=== PATIENT | male | born 1950 | race African-American/Black ===

== ENCOUNTER 2017-03-13 06:27 | Day surgery (SDC) | payer MEDICAID, MEDICARE ==
[~2017-03-13] VITALS: Ht 185.4 cm; Wt 93.9 kg
[2017-03-13] MEDS ORDERED: TROPICAMIDE 1% OPHTH DROPS 15ML LEFTEYE SCH (07:55)
[2017-03-13] MEDS ORDERED: CYCLOPENTOLATE HCL 1% OPHTH DROPS 2ML LEFTEYE SCH (07:55)
[2017-03-13] MEDS ORDERED: PHENYLEPHRINE HCL 10% OPHTH DROPS 5ML LEFTEYE SCH (07:55)
[2017-03-13] MEDS ORDERED: FENTANYL CITRATE/PF 50MCG/ML 2ML VIAL IV PRN (08:00)
[2017-03-13] MEDS ORDERED: ONDANSETRON HCL 4MG/2ML VIAL IV PRN (08:00)
[2017-03-13] MEDS ORDERED: SODIUM CHLORIDE 0.9% 1,000 ML IV SCH (08:15)
[2017-03-13] MEDS ORDERED: BALANCED SALT IRRIG SOLN COMB1 500ML OP SCH (08:30)
[2017-03-13] MEDS ORDERED: MIDAZOLAM HCL 2 MG/2 ML VIAL ONE ×2 (09:32→09:43)
[2017-03-13] MEDS ORDERED: PROPOFOL 200MG/20ML VIAL IV ONE (09:32)
[2017-03-13] MEDS ORDERED: HYALURONATE SODIUM 14 MG/ML 0.85ML SYRINGE IO ONE (09:35)
[2017-03-13] MEDS ORDERED: METF500T4 PO (11:12)
[2017-03-13] MEDS ORDERED: BENA1TAB18 PO (11:12)
[2017-03-13] MEDS ORDERED: LATA2.5D6 LEFTEYE (11:13)
[2017-03-13] MEDS ORDERED: TIMO15DR12 EACHEYE (11:13)
[2017-03-13] MEDS ORDERED: ACET250T3 PO (11:13)
[2017-03-13] MEDS ORDERED: AMOX500T2 PO (11:13)
[2017-03-13] MEDS ORDERED: ACET-2708 PO (11:13)
[2017-03-13] MEDS ORDERED: BRIM5DRO BOTHEYE (11:13)
[2017-03-13] MEDS ORDERED: TETRACAINE 0.5% OPHTH DROPS 4ML ONE (14:27)
[2017-03-13] MEDS ORDERED: PREDNISOLONE ACETATE 1% OPHTH DROPS 1ML ONE (14:27)
[2017-03-13] MEDS ORDERED: NEO/POLYMYX B SULF/DEXAMETH OPHTH OINT 3.5GM ONE (14:27)
[2017-03-13] MEDS ORDERED: BALANCED SALT IRRIG SOLN 15ML ONE (14:27)
[2017-03-13] MEDS ORDERED: BUPIVACAINE HCL/PF 0.75% (7.5MG/ML) 10ML ONE (14:27)
[2017-03-13] MEDS ORDERED: CIPROFLOXACIN 0.3% OPHTH SOLN 2.5ML ONE (14:27)
[2017-03-13] MEDS ORDERED: LIDOCAINE HCL 2%/EPINEPHRINE 1:100,000 20 ML VIAL INFIL ONE (14:27)
== END 2017-03-13 11:00 | disposition home or self-care (01) ==
LOC: OR 06:27
PROVIDERS: ATTEND Ophthalmology
DX: H25.9 Unspecified age-related cataract (principal); I10 Essential (primary) hypertension; E11.9 Type 2 diabetes mellitus without complications; H40.89 Other specified glaucoma
CPT/HCPCS: 66984; 82962; J2250; J3490; J7030; J2704

== ENCOUNTER 2017-05-01 18:45 | Inpatient (IN) | payer MEDICARE, MEDICAID ==
[~2017-05-01] VITALS: Ht 185.4 cm; Wt 93.0 kg
[~2017-05-01 18:45] MED LIST: ACET-2708 PO; ACET250T3 PO; AMOX500T2 PO; BENA1TAB18 PO; BRIM5DRO BOTHEYE; LATA2.5D6 LEFTEYE; METF500T4 PO; TIMO15DR12 EACHEYE
[2017-05-01] MEDS ORDERED: ONDANSETRON HCL 4MG/2ML VIAL IV STA (19:00)
[2017-05-01 19:20] LABS: BASOPHILS % 0.2 % (0.0-2.0); HEMATOCRIT. 40.9 % (42.0-52.0); HEMOGLOBIN. 14.1 g/dL (14.0-18.0); LYMPHOCYTES % 8.2 % (20.0-50.0); MEAN CORPUSCULAR HEMOGLOBIN 30.9 pg (28.0-32.0); MEAN CORPUSCULAR VOLUME 89.8 fL (80.0-94.0); MEAN PLATELET VOLUME 9.4 fl (7.4-10.4); MONOCYTES % 2.9 % (2.0-8.0); NEUTROPHILS % 88.7 % (40.0-76.0); PLATELET 212 x1000/uL (130-400); RED BLOOD CELL COUNT 4.56 mill/uL (4.7-6.1); RED CELL DISTRIBUTION WIDTH 13.3 % (11.6-14.6)
[2017-05-01 19:26] LABS: INR 1.1; PROTHROMBIN TIME 11.1 sec
[2017-05-01 19:35] LABS: CARBON DIOXIDE 21 mEq/L (21-32); CHLORIDE 109 mEq/L (98-107); TROPONIN I < 0.02 ng/mL (0.00-0.04)
[2017-05-01] MEDS ORDERED: SODIUM CHLORIDE 0.9% 1,000 ML IV NR (19:55)
[2017-05-01] MEDS ORDERED: MORPHINE SULFATE 4 MG/ML CPJ (NOT FOR IM USE) IV NR (20:00)
[2017-05-01] MEDS ORDERED: FAMOTIDINE 20MG/2ML VIAL IV NR (20:00)
[2017-05-01] MEDS ORDERED: POTASSIUM CHLORIDE 20MEQ TABLET SR PO NR (23:00)
[2017-05-01] MEDS ORDERED: DOCUSATE SODIUM 100MG CAPSULE PO PRN (23:00)
[2017-05-01] MEDS ORDERED: IPRATROPIUM/ALBUTEROL 0.5-3(2.5)MG/3ML NEB INH PRN (23:00)
[2017-05-01] MEDS ORDERED: ACETAMINOPHEN 325MG TABLET PO PRN (23:00)
[2017-05-01] MEDS ORDERED: ONDANSETRON HCL 4MG/2ML VIAL IV PRN (23:00)
[2017-05-02] MEDS: SODIUM CHLORIDE 0.9% 1,000 ML IV SCH ×4 (00:13→03:45)
[2017-05-02 03:19] VITALS: BP 162/85
[2017-05-02 04:00] VITALS: BP 166/88
[2017-05-02 06:25] LABS: BASOPHILS % 0.1 % (0.0-2.0); EOSINOPHILS % 0.1 % (0.0-5.0); HEMATOCRIT. 41.6 % (42.0-52.0); LYMPHOCYTES % 18.4 % (20.0-50.0); MEAN CORPUSCULAR HEMOGLOBIN 30.6 pg (28.0-32.0); MEAN CORPUSCULAR VOLUME 91.2 fL (80.0-94.0); MEAN PLATELET VOLUME 9.8 fl (7.4-10.4); MONOCYTES % 9.6 % (2.0-8.0); NEUTROPHILS % 71.8 % (40.0-76.0); PLATELET 190 x1000/uL (130-400); RED BLOOD CELL COUNT 4.56 mill/uL (4.7-6.1); RED CELL DISTRIBUTION WIDTH 12.8 % (11.6-14.6)
[2017-05-02 07:26] LABS: CHLORIDE 111 mEq/L (98-107)
[2017-05-02 07:33] LABS: CARBON DIOXIDE 20 mEq/L (21-32)
[2017-05-02 08:00] VITALS: BP 178/104
[2017-05-02] MEDS ORDERED: DEXTROSE 50% WATER 50ML SYRINGE IV PRN (08:15)
[2017-05-02] MEDS ORDERED: CLONIDINE 0.1MG TABLET PO NR (08:27)
[2017-05-02] MEDS: PANTOPRAZOLE SODIUM 40 MG/VIAL IV SCH (08:55)
[2017-05-02] MEDS ORDERED: POTASSIUM CHLORIDE 20MEQ TABLET SR PO SCH (09:15)
[2017-05-02 12:00] VITALS: BP 142/84
[2017-05-02] MEDS: INSULIN LISPRO 100 UNITS/ML SUBCUT SCH ×3 (12:15→20:28)
[2017-05-02] MEDS: BLOOD SUGAR DIAGNOSTIC STRIP TEST SCH ×3 (12:38→20:24)
[2017-05-02] MEDS: PREDNISOLONE ACETATE 1% OPHTH DROPS 1ML LEFTEYE SCH ×2 (12:48→19:01)
[2017-05-02] MEDS: BENAZEPRIL 20MG TABLET PO SCH (13:00)
[2017-05-02] MEDS: CIPROFLOXACIN 0.3% OPHTH SOLN 2.5ML LEFTEYE SCH ×3 (13:35→20:24)
[2017-05-02 16:00] VITALS: BP 159/91
[2017-05-02 20:00] VITALS: BP 128/79
[2017-05-03] VITALS (7 sets, daily range): BP systolic 128–178; BP diastolic 73–96
[2017-05-03] MEDS: PREDNISOLONE ACETATE 1% OPHTH DROPS 1ML LEFTEYE SCH ×4 (00:28→17:17)
[2017-05-03] MEDS: BLOOD SUGAR DIAGNOSTIC STRIP TEST SCH ×4 (06:16→21:00)
[2017-05-03] MEDS: INSULIN LISPRO 100 UNITS/ML SUBCUT SCH ×4 (06:16→21:00)
[2017-05-03 07:15] LABS: BASOPHILS % 0.6 % (0.0-2.0); EOSINOPHILS % 1.2 % (0.0-5.0); HEMATOCRIT. 39.1 % (42.0-52.0); HEMOGLOBIN. 13.2 g/dL (14.0-18.0); LYMPHOCYTES % 36.4 % (20.0-50.0); MEAN CORPUSCULAR HEMOGLOBIN 30.6 pg (28.0-32.0); MEAN CORPUSCULAR VOLUME 90.9 fL (80.0-94.0); MEAN PLATELET VOLUME 9.8 fl (7.4-10.4); MONOCYTES % 9.6 % (2.0-8.0); NEUTROPHILS % 52.2 % (40.0-76.0); PLATELET 187 x1000/uL (130-400); RED BLOOD CELL COUNT 4.31 mill/uL (4.7-6.1); RED CELL DISTRIBUTION WIDTH 13.3 % (11.6-14.6)
[2017-05-03 07:33] LABS: CARBON DIOXIDE 26 mEq/L (21-32); CHLORIDE 112 mEq/L (98-107)
[2017-05-03] MEDS: PANTOPRAZOLE SODIUM 40 MG/VIAL IV SCH (08:56)
[2017-05-03] MEDS: CIPROFLOXACIN 0.3% OPHTH SOLN 2.5ML LEFTEYE SCH ×4 (08:57→22:24)
[2017-05-03] MEDS: BENAZEPRIL 20MG TABLET PO SCH (12:30)
[2017-05-03] MEDS ORDERED: HYDROCHLOROTHIAZIDE 12.5MG CAPSULE PO NR (20:00)
[2017-05-04] VITALS (9 sets, daily range): BP systolic 149–188; BP diastolic 89–107
[2017-05-04] MEDS: PREDNISOLONE ACETATE 1% OPHTH DROPS 1ML LEFTEYE SCH ×4 (00:26→18:18)
[2017-05-04] MEDS: BLOOD SUGAR DIAGNOSTIC STRIP TEST SCH ×4 (06:06→20:54)
[2017-05-04] MEDS: INSULIN LISPRO 100 UNITS/ML SUBCUT SCH ×4 (06:07→21:26)
[2017-05-04 07:00] LABS: CARBON DIOXIDE 27 mEq/L (21-32); CHLORIDE 107 mEq/L (98-107)
[2017-05-04 07:07] LABS: BASOPHILS % 0.7 % (0.0-2.0); EOSINOPHILS % 1.3 % (0.0-5.0); HEMATOCRIT. 40.4 % (42.0-52.0); LYMPHOCYTES % 37.7 % (20.0-50.0); MEAN CORPUSCULAR HEMOGLOBIN 30.6 pg (28.0-32.0); MEAN CORPUSCULAR VOLUME 88.6 fL (80.0-94.0); MEAN PLATELET VOLUME 9.7 fl (7.4-10.4); MONOCYTES % 10.5 % (2.0-8.0); NEUTROPHILS % 49.8 % (40.0-76.0); PLATELET 200 x1000/uL (130-400); RED BLOOD CELL COUNT 4.56 mill/uL (4.7-6.1)
[2017-05-04] MEDS: HYDROCHLOROTHIAZIDE 25MG TABLET PO SCH (07:13)
[2017-05-04] MEDS: PANTOPRAZOLE SODIUM 40 MG/VIAL IV SCH (08:45)
[2017-05-04] MEDS: CIPROFLOXACIN 0.3% OPHTH SOLN 2.5ML LEFTEYE SCH ×4 (08:45→20:58)
[2017-05-04] MEDS ORDERED: BENAZEPRIL 20MG TABLET PO SCH ×2 (09:00→21:00)
[2017-05-04] MEDS ORDERED: POTASSIUM CHLORIDE 20MEQ TABLET SR PO NR (11:45)
[2017-05-04] MEDS: AMLODIPINE 5MG TABLET PO SCH (13:38)
[2017-05-05] VITALS (8 sets, daily range): BP systolic 113–168; BP diastolic 81–107
[2017-05-05] MEDS: PREDNISOLONE ACETATE 1% OPHTH DROPS 1ML LEFTEYE SCH ×4 (00:16→17:58)
[2017-05-05 05:43] LABS: BASOPHILS % 0.6 % (0.0-2.0); EOSINOPHILS % 1.6 % (0.0-5.0); HEMATOCRIT. 44.5 % (42.0-52.0); HEMOGLOBIN. 15.2 g/dL (14.0-18.0); MEAN CORPUSCULAR HEMOGLOBIN 30.6 pg (28.0-32.0); MEAN CORPUSCULAR VOLUME 89.8 fL (80.0-94.0); MEAN PLATELET VOLUME 9.2 fl (7.4-10.4); MONOCYTES % 10.2 % (2.0-8.0); NEUTROPHILS % 52.6 % (40.0-76.0); PLATELET 214 x1000/uL (130-400); RED BLOOD CELL COUNT 4.96 mill/uL (4.7-6.1); RED CELL DISTRIBUTION WIDTH 12.9 % (11.6-14.6)
[2017-05-05] MEDS: BLOOD SUGAR DIAGNOSTIC STRIP TEST SCH ×4 (06:11→21:35)
[2017-05-05 06:16] LABS: CHLORIDE 100 mEq/L (98-107)
[2017-05-05 06:22] LABS: CARBON DIOXIDE 30 mEq/L (21-32)
[2017-05-05] MEDS: INSULIN LISPRO 100 UNITS/ML SUBCUT SCH ×3 (06:55→16:49)
[2017-05-05] MEDS: BENAZEPRIL 20MG TABLET PO SCH ×2 (08:53→21:00)
[2017-05-05] MEDS: HYDROCHLOROTHIAZIDE 25MG TABLET PO SCH (08:53)
[2017-05-05] MEDS: CIPROFLOXACIN 0.3% OPHTH SOLN 2.5ML LEFTEYE SCH ×4 (08:54→21:11)
[2017-05-05] MEDS: PANTOPRAZOLE SODIUM 40 MG/VIAL IV SCH (08:54)
[2017-05-05] MEDS: AMLODIPINE 5MG TABLET PO SCH ×2 (09:00→11:53)
[2017-05-05] MEDS: HYDRALAZINE HCL 25MG TABLET PO SCH ×3 (10:09→22:00)
[2017-05-05] MEDS ORDERED: METFORMIN HCL 500MG TABLET PO SCH (18:00)
[2017-05-06] VITALS: BP 134/92
[2017-05-06] MEDS: PREDNISOLONE ACETATE 1% OPHTH DROPS 1ML LEFTEYE SCH ×2 (00:08→06:01)
[2017-05-06 04:00] VITALS: BP 133/94
[2017-05-06 05:42] LABS: BASOPHILS % 0.7 % (0.0-2.0); EOSINOPHILS % 1.6 % (0.0-5.0); HEMATOCRIT. 44.6 % (42.0-52.0); HEMOGLOBIN. 14.9 g/dL (14.0-18.0); LYMPHOCYTES % 33.4 % (20.0-50.0); MEAN CORPUSCULAR HEMOGLOBIN 30.5 pg (28.0-32.0); MEAN CORPUSCULAR VOLUME 91.3 fL (80.0-94.0); MEAN PLATELET VOLUME 9.6 fl (7.4-10.4); MONOCYTES % 10.9 % (2.0-8.0); NEUTROPHILS % 53.4 % (40.0-76.0); PLATELET 220 x1000/uL (130-400); RED BLOOD CELL COUNT 4.88 mill/uL (4.7-6.1)
[2017-05-06] MEDS: HYDRALAZINE HCL 25MG TABLET PO SCH (06:00)
[2017-05-06 06:05] LABS: CARBON DIOXIDE 29 mEq/L (21-32); CHLORIDE 100 mEq/L (98-107)
[2017-05-06] MEDS: BLOOD SUGAR DIAGNOSTIC STRIP TEST SCH (06:23)
[2017-05-06] MEDS ORDERED: METFORMIN HCL 500MG TABLET PO SCH ×2 (07:15→09:00)
[2017-05-06 08:00] VITALS: BP 138/87
[2017-05-06] MEDS: BENAZEPRIL 20MG TABLET PO SCH (08:02)
[2017-05-06] MEDS: CIPROFLOXACIN 0.3% OPHTH SOLN 2.5ML LEFTEYE SCH (08:02)
[2017-05-06] MEDS: HYDROCHLOROTHIAZIDE 25MG TABLET PO SCH (08:02)
[2017-05-06] MEDS ORDERED: FAMOTIDINE 20MG TABLET PO SCH (09:00)
[2017-05-06] MEDS: AMLODIPINE 5MG TABLET PO SCH (11:35)
[2017-05-06 12:27] VITALS: BP 133/83
== END 2017-05-06 13:00 | disposition home or self-care (01) | DRG 918 ==
LOC: ER 18:55 → 5WST 20:28 → EDBEDREQ 20:32 → EDBEDREQTM 20:32 → ENRESERV 21:47 → CANRESERV 21:47 → SUPCPDRO 22:49 → EDBEDREQTM 23:05 → EDBEDREQSVC 23:05 → ENRESERV 05-02 01:32
PROVIDERS: ADMIT Family Medicine Adult Medicine; ATTEND Family Medicine Adult Medicine
DX: T88.59XA Other complications of anesthesia, initial encounter (principal); I47.1 Supraventricular tachycardia; E11.319 Type 2 diabetes mellitus with unspecified diabetic retinopathy without macular edema; H40.9 Unspecified glaucoma; I10 Essential (primary) hypertension; R00.1 Bradycardia, unspecified; Z96.89 Presence of other specified functional implants; H54.11 Blindness, right eye, low vision left eye; I45.10 Unspecified right bundle-branch block; Y83.8 Other surgical procedures as the cause of abnormal reaction of the patient, or of later complication, without mention of misadventure at the time of the procedure; Y77.8 Miscellaneous ophthalmic devices associated with adverse incidents, not elsewhere classified; K59.00 Constipation, unspecified; H40.059 Ocular hypertension, unspecified eye; Z71.89 Other specified counseling; Z87.891 Personal history of nicotine dependence; Z79.899 Other long term (current) drug therapy; Z82.49 Family history of ischemic heart disease and other diseases of the circulatory system; Y92.89 Other specified places as the place of occurrence of the external cause
CPT/HCPCS: 36415; 71010; 80048; 80053; 80076; 82962; 83735; 83880; 84443; 84484; 85025; 85610; 93005; 93306; 93970; 96361; 96374; 96375; 99285; C9113; J1815; J2270; J2405; J3490; J7030

== ENCOUNTER 2017-05-16 00:07 | Emergency (ER) | payer MEDICARE, MEDICAID ==
[~2017-05-16] VITALS: Ht 185.4 cm; Wt 93.0 kg
[~2017-05-16 00:07] MED LIST changes: -TIMO15DR12 EACHEYE
[2017-05-16 04:38] VITALS: BP 130/83
== END 2017-05-16 05:20 | disposition home or self-care (01) ==
LOC: ER 00:15
DX: H57.12 Ocular pain, left eye (principal)
CPT/HCPCS: 99283

== ENCOUNTER → 2019-02-04 | Day surgery (SDC) | payer MEDICARE, MEDICAID ==
[~2019-02-04] VITALS: Ht 185.4 cm; Wt 95.3 kg
[~2019-02-04] MED LIST changes: +ACETAMINOPHEN 500MG TABLET PO NR; +ACETYLCHOLINE CHLORIDE INTRAOCULAR SOLUTION 1:100 ELECTROLYTE DILUENT IO ONE; +BALANCED SALT IRRIG SOLN 15ML ONE; +BRIN8DRO LEFTEYE; +BUPIVACAINE HCL/PF 0.75% (7.5MG/ML) 10ML ONE; +CIPROFLOXACIN 0.3% OPHTH SOLN 2.5ML ONE; +FENTANYL CITRATE/PF 50MCG/ML 2ML VIAL ONE; +GLYCOPYRROLATE 0.2 MG/ML 2ML VIAL ONE; +LACTATED RINGERS 1,000 ML IV SCH; +LATA2.5D4 LEFTEYE; -LATA2.5D6 LEFTEYE; +LIDOCAINE HCL 2%/EPINEPHRINE 1:100,000 20 ML VIAL INFIL ONE; +LIDOCAINE HCL/PF 1% 10 MG/ML 5ML VIAL ONE; +METF-414 PO; -METF500T4 PO; +METH50TA5 PO; +METOCLOPRAMIDE HCL 10MG/2ML VIAL ONE; +MIDAZOLAM HCL 2 MG/2 ML VIAL ONE; +MITOMYCIN 0.2 MG KIT OP NR; +NEO/POLYMYX B SULF/DEXAMETH OPHTH OINT 3.5GM ONE; +NEOSTIGMINE METHYLSULFATE 1MG/ML 10 ML VIAL ONE; +ONDANSETRON HCL 4MG/2ML INJ ONE; +PREDNISOLONE ACETATE 1% OPHTH DROPS 1ML ONE; +PROPOFOL 200MG/20ML VIAL IV ONE; +ROCURONIUM BROMIDE 10MG/ML VIAL 5ML IV ONE; +SUCCINYLCHOLINE CHLORIDE 200MG/10ML IV ONE; +TRAV2.5D LEFTEYE
== END | disposition home or self-care (01) ==
LOC: OR 08:49
PROVIDERS: ATTEND Ophthalmology
DX: E11.39 Type 2 diabetes mellitus with other diabetic ophthalmic complication (principal); E11.319 Type 2 diabetes mellitus with unspecified diabetic retinopathy without macular edema; H40.89 Other specified glaucoma; I10 Essential (primary) hypertension; K21.9 Gastro-esophageal reflux disease without esophagitis; Z79.899 Other long term (current) drug therapy; Z79.84 Long term (current) use of oral hypoglycemic drugs; Z83.3 Family history of diabetes mellitus
CPT/HCPCS: 66170; 82962; J0330; J2250; J2405; J2704; J2710; J2765; J3010; J3490; J9280

== ENCOUNTER 2020-01-03 23:13 | Emergency (ER) | payer MEDICARE, MEDICAID ==
[~2020-01-03] VITALS: Ht 185.4 cm; Wt 93.0 kg
[~2020-01-03 23:13] MED LIST changes: -ACET250T3 PO; -ACETAMINOPHEN 500MG TABLET PO NR; -ACETYLCHOLINE CHLORIDE INTRAOCULAR SOLUTION 1:100 ELECTROLYTE DILUENT IO ONE; -AMOX500T2 PO; -BALANCED SALT IRRIG SOLN 15ML ONE; -BRIM5DRO BOTHEYE; -BUPIVACAINE HCL/PF 0.75% (7.5MG/ML) 10ML ONE; -CIPROFLOXACIN 0.3% OPHTH SOLN 2.5ML ONE; -FENTANYL CITRATE/PF 50MCG/ML 2ML VIAL ONE; -GLYCOPYRROLATE 0.2 MG/ML 2ML VIAL ONE; -LACTATED RINGERS 1,000 ML IV SCH; -LATA2.5D4 LEFTEYE; -LIDOCAINE HCL 2%/EPINEPHRINE 1:100,000 20 ML VIAL INFIL ONE; -LIDOCAINE HCL/PF 1% 10 MG/ML 5ML VIAL ONE; -METOCLOPRAMIDE HCL 10MG/2ML VIAL ONE; -MIDAZOLAM HCL 2 MG/2 ML VIAL ONE; -MITOMYCIN 0.2 MG KIT OP NR; -NEO/POLYMYX B SULF/DEXAMETH OPHTH OINT 3.5GM ONE; -NEOSTIGMINE METHYLSULFATE 1MG/ML 10 ML VIAL ONE; -ONDANSETRON HCL 4MG/2ML INJ ONE; -PREDNISOLONE ACETATE 1% OPHTH DROPS 1ML ONE; -PROPOFOL 200MG/20ML VIAL IV ONE; -ROCURONIUM BROMIDE 10MG/ML VIAL 5ML IV ONE; -SUCCINYLCHOLINE CHLORIDE 200MG/10ML IV ONE
[2020-01-04] MEDS ORDERED: HYDROCODONE/ACETAMINOPHEN 5/325MG TABLET PO ONE (00:15)
[2020-01-04 00:44] VITALS: BP 128/76
== END 2020-01-04 00:45 | disposition home or self-care (01) ==
LOC: ER 23:13
DX: K08.89 Other specified disorders of teeth and supporting structures (principal); Z79.899 Other long term (current) drug therapy
CPT/HCPCS: 99283

== ENCOUNTER 2020-02-02 12:08 | Inpatient (IN) | payer MEDICARE, MEDICAID ==
[~2020-02-02] VITALS: Ht 185.4 cm; Wt 95.7 kg
[2020-02-02] MEDS ORDERED: MORPHINE SULFATE 4 MG/ML CPJ (NOT FOR IM USE) IV ONE (14:30)
[2020-02-02] MEDS ORDERED: ONDANSETRON HCL 4MG/2ML INJ IV ONE ×2 (14:30→19:00)
[2020-02-02] MEDS ORDERED: FLUORESCEIN SODIUM 1MG/STRIP EACHEYE SCH (15:00)
[2020-02-02 15:14] LABS: CHLORIDE 102 mEq/L (98-107)
[2020-02-02 15:17] LABS: HEMATOCRIT 45.3 % (42.0-52.0); HEMOGLOBIN 15.4 g/dL (14.0-18.0); MEAN CORPUSCULAR HEMOGLOBIN 30.9 pg (28.0-32.0); MEAN CORPUSCULAR VOLUME 90.7 fL (80.0-94.0); PLATELET 228 x1000/uL (130-400); RED BLOOD CELL COUNT 4.99 mill/uL (4.7-6.1); RED CELL DISTRIBUTION WIDTH 13.1 % (11.6-14.6)
[2020-02-02] MEDS ORDERED: TETRACAINE 0.5% OPHTH DROPS 4ML RIGHTEYE ONE (16:45)
[2020-02-02] MEDS ORDERED: LORAZEPAM 2MG/ML CPJ IV ONE (19:00)
[2020-02-02] MEDS ORDERED: METOCLOPRAMIDE HCL 10MG/2ML VIAL IV ONE (19:00)
[2020-02-02] MEDS ORDERED: ACETAZOLAMIDE SODIUM 500MG/VIAL IV ONE (19:45)
[2020-02-02] MEDS ORDERED: CIPROFLOXACIN 0.3% OPHTH SOLN 2.5ML BOTHEYE ONE (19:45)
[2020-02-02] MEDS ORDERED: CLONIDINE 0.2MG TABLET PO NR (20:30)
[2020-02-02] MEDS ORDERED: LABETALOL 5MG/ML SYR 20 MG/4 ML SYRINGE IV NR (20:30)
[2020-02-02] MEDS ORDERED: CLONIDINE 0.1MG TABLET PO PRN (21:15)
[2020-02-02] MEDS ORDERED: ONDANSETRON HCL 4MG/2ML INJ IV PRN (21:15)
[2020-02-02] MEDS ORDERED: MORPHINE SULFATE 2 MG/ML CPJ (NOT FOR IM USE) IV PRN (21:15)
[2020-02-02] MEDS ORDERED: DEXTROSE 50% WATER 50ML SYRINGE IV PRN (21:15)
[2020-02-02] MEDS ORDERED: ACETAMINOPHEN 325MG TABLET PO PRN (21:15)
[2020-02-03] MEDS: AMLODIPINE 5MG TABLET PO SCH ×2 (09:00→21:28)
[2020-02-03 10:00] VITALS: BP 132/78
[2020-02-03 12:00] VITALS: BP 132/78
[2020-02-03] MEDS: INSULIN LISPRO 100 UNITS/ML SUBCUT SCH ×3 (12:15→21:00)
[2020-02-03] MEDS: BLOOD SUGAR DIAGNOSTIC STRIP TEST SCH ×3 (12:18→21:00)
[2020-02-03] MEDS: PREDNISOLONE ACETATE 1% OPHTH DROPS 5ML BOTHEYE SCH ×4 (12:22→18:04)
[2020-02-03] MEDS: PREDNISOLONE ACETATE 1% OPHTH DROPS 5ML RIGHTEYE SCH ×2 (12:22→18:04)
[2020-02-03] MEDS: CIPROFLOXACIN 0.3% OPHTH SOLN 2.5ML RIGHTEYE SCH ×3 (13:00→21:28)
[2020-02-03] MEDS: BRIMONIDINE 0.2% OPHTH DROPS 5ML LEFTEYE SCH ×2 (14:00→22:16)
[2020-02-03 16:00] VITALS: BP 129/90
[2020-02-03 20:00] VITALS: BP 145/69
[2020-02-03 23:53] VITALS: BP 106/69
[2020-02-04] MEDS: PREDNISOLONE ACETATE 1% OPHTH DROPS 5ML RIGHTEYE SCH ×3 (00:09→11:39)
[2020-02-04] MEDS: PREDNISOLONE ACETATE 1% OPHTH DROPS 5ML BOTHEYE SCH ×7 (02:00→11:38)
[2020-02-04 04:00] VITALS: BP 118/70
[2020-02-04] MEDS: BLOOD SUGAR DIAGNOSTIC STRIP TEST SCH ×2 (05:50→11:38)
[2020-02-04] MEDS: BRIMONIDINE 0.2% OPHTH DROPS 5ML LEFTEYE SCH (06:30)
[2020-02-04] MEDS: INSULIN LISPRO 100 UNITS/ML SUBCUT SCH ×2 (06:43→11:39)
[2020-02-04 08:00] VITALS: BP 113/75
[2020-02-04] MEDS: AMLODIPINE 5MG TABLET PO SCH (09:00)
[2020-02-04] MEDS: CIPROFLOXACIN 0.3% OPHTH SOLN 2.5ML RIGHTEYE SCH (09:32)
[2020-02-04 11:57] VITALS: BP 113/75
[2020-02-04] MEDS ORDERED: BRIM.2 LEFTEYE (11:58)
== END 2020-02-04 13:05 | disposition home or self-care (01) | DRG 125 ==
LOC: ER 12:08 → 5WST 20:19 → EDBEDREQTM 20:23 → EDBEDREQ 20:23 → EDBEDREQSVC 22:21 → EDBEDREQTM 22:21 → ENRESERV 02-03 08:42 → 5WST 02-03 10:44
PROVIDERS: ADMIT Internal Medicine; ATTEND Internal Medicine
DX: S05.11XA Contusion of eyeball and orbital tissues, right eye, initial encounter (principal); E87.1 Hypo-osmolality and hyponatremia; E11.319 Type 2 diabetes mellitus with unspecified diabetic retinopathy without macular edema; H40.10X0 Unspecified open-angle glaucoma, stage unspecified; I16.0 Hypertensive urgency; W19.XXXA Unspecified fall, initial encounter; S01.111A Laceration without foreign body of right eyelid and periocular area, initial encounter; I10 Essential (primary) hypertension; H44.521 Atrophy of globe, right eye; H54.3 Unqualified visual loss, both eyes; W18.39XA Other fall on same level, initial encounter; Y93.89 Activity, other specified; Y92.89 Other specified places as the place of occurrence of the external cause; Y99.8 Other external cause status; Z79.84 Long term (current) use of oral hypoglycemic drugs; Z79.899 Other long term (current) drug therapy; Z82.49 Family history of ischemic heart disease and other diseases of the circulatory system; X50.1XXA Overexertion from prolonged static or awkward postures, initial encounter
CPT/HCPCS: 36415; 70486; 80053; 82962; 85027; 97161; 99291; J1120; J1815; J2060; J2270; J2405; J2765

== ENCOUNTER 2020-08-12 09:29 | Emergency (ER) | payer MEDICARE, MEDICAID ==
[~2020-08-12] VITALS: Ht 185.4 cm; Wt 95.0 kg
[~2020-08-12 09:29] MED LIST changes: +BRIM.2 LEFTEYE
[2020-08-12 09:32] VITALS: BP 121/85
== END 2020-08-12 11:31 | disposition home or self-care (01) ==
LOC: ER 09:29
DX: S83.92XA Sprain of unspecified site of left knee, initial encounter (principal); E11.9 Type 2 diabetes mellitus without complications; I10 Essential (primary) hypertension; H54.8 Legal blindness, as defined in USA; Z79.84 Long term (current) use of oral hypoglycemic drugs; W01.0XXA Fall on same level from slipping, tripping and stumbling without subsequent striking against object, initial encounter; Y93.89 Activity, other specified; Y92.018 Other place in single-family (private) house as the place of occurrence of the external cause
CPT/HCPCS: 29505; 73560; 99283

== ENCOUNTER 2021-05-16 11:53 | Emergency (ER) | payer MEDICARE, MEDICAID ==
[~2021-05-16] VITALS: Ht 185.4 cm; Wt 88.0 kg
[~2021-05-16 11:53] MED LIST changes: -BRIN8DRO LEFTEYE; +BRIN8DRO2 LEFTEYE; +LIP40 MT; -TRAV2.5D LEFTEYE; +TRAV2.5D9 LEFTEYE
[2021-05-16 12:11] VITALS: BP 116/94
[2021-05-16] MEDS ORDERED: LIDOCAINE HCL/PF 1% 10 MG/ML 5ML VIAL INFIL ONE (14:15)
[2021-05-16] MEDS ORDERED: CEPH500C2 MT ×3 (14:38→15:06)
[2021-05-16] MEDS ORDERED: ACET650T37 MT ×3 (14:38→15:06)
[2021-05-16] MEDS ORDERED: CEPHALEXIN 250MG CAPSULE PO ONE (15:15)
[2021-05-16] MEDS ORDERED: ACETAMINOPHEN 325MG TABLET PO ONE (15:15)
== END 2021-05-16 15:54 | disposition home or self-care (01) ==
LOC: ER 11:53
DX: L03.011 Cellulitis of right finger (principal); E11.9 Type 2 diabetes mellitus without complications; I10 Essential (primary) hypertension; Z86.73 Personal history of transient ischemic attack (TIA), and cerebral infarction without residual deficits; Z79.84 Long term (current) use of oral hypoglycemic drugs
CPT/HCPCS: 10060; 99284; J3490

== ENCOUNTER 2022-10-06 11:55 | Emergency (ER) | payer MEDICARE, MEDICAID ==
[~2022-10-06] VITALS: Ht 185.4 cm; Wt 87.0 kg
[~2022-10-06 11:55] MED LIST changes: +ACET-3163 MT; +BRIN8DRO LEFTEYE; -BRIN8DRO2 LEFTEYE; +CEPH500C2 MT
[2022-10-06] MEDS ORDERED: HYDROCODONE/ACETAMINOPHEN 5/325MG TABLET PO ONE (12:15)
[2022-10-06] MEDS ORDERED: CIPR250S3 PO (14:01)
[2022-10-06 14:07] LABS: CLARITY URINE CLOUDY (CLEAR); COLOR URINE YELLOW (YELLOW); KETONES URINE TRACE (NEGATIVE); LEUKOCYTE ESTERASE URINE 2+ (NEGATIVE); NITRITE URINE NEGATIVE (NEGATIVE); OCCULT BLOOD URINE 2+ (NEGATIVE); PROTEIN URINE 2+ (NEGATIVE); SPECIFIC GRAVITY URINE 1.016 (1.005-1.030); UROBILINOGEN URINE 0.2 E.U./dL (0.2-1.0)
[2022-10-06] MEDS ORDERED: METF-414 MT (14:21)
[2022-10-06 16:05] VITALS: BP 108/46
== END 2022-10-06 16:07 | disposition home or self-care (01) ==
LOC: ER 11:55
DX: R33.9 Retention of urine, unspecified (principal); E11.65 Type 2 diabetes mellitus with hyperglycemia; I10 Essential (primary) hypertension; Z86.73 Personal history of transient ischemic attack (TIA), and cerebral infarction without residual deficits; Z79.899 Other long term (current) drug therapy
CPT/HCPCS: 81003; 82962; 87077; 87186; 99283; A4315